=== PATIENT | female | born 1945 | race Caucasian/White ===

== ENCOUNTER 2019-09-10 15:33 | Emergency (ER) | payer OTHER, MEDICARE ==
[~2019-09-10] VITALS: Ht 170.2 cm; Wt 81.7 kg
[2019-09-10] MEDS ORDERED: LEVOXYL137 MCG PO (15:49)
[2019-09-10] MEDS ORDERED: NORCO 5-325 TA1 EACH PO (17:55)
== END 2019-09-10 19:04 | disposition home or self-care (01) ==
LOC: ED 15:33
DX: S32.019A Unspecified fracture of first lumbar vertebra, initial encounter for closed fracture (principal); Z87.891 Personal history of nicotine dependence; X58.XXXA Exposure to other specified factors, initial encounter
CPT/HCPCS: 70450; 72125; 72131; 73700; 99284-25